=== PATIENT | female | born 1975 | race Caucasian/White ===

== ENCOUNTER 2020-09-09 07:44 | Emergency (ER) | payer SELFPAY ==
[2020-09-09 08:23] VITALS: BP 148/88; PULSE 86; RESP 16; TEMP 36.4; O2SAT 97; BMI 30.1
--- NOTE | 2020-09-09 08:29 | W.ED.BACK ---
HPI - Back Pain/Injury General: Chief Complaint: Back Pain/Injury Stated Complaint: BACK PAIN Time Seen by Provider: 09/09/20 08:21 History of Present Illness: HPI Narrative: Patient is a 45-year-old female who comes to the ED with lumbar back pain. Back pain started approximately 1 week ago. She says she was putting up [employer] decorations she thinks she strained her lower back. Her symptoms were improving over the last week but yesterday and today her back pain increased. She describes having some pain that radiates down left leg. Movement, especially standing up or sitting up causes increased pain. Patient says she can feel some pain radiating into her left leg when she is up ambulating. She has been taking ibuprofen and Tylenol help with pain. She has been applying cold pack on back to help with symptoms. Today patient developed some urine Associated symptoms: Reports urinary urgency (She keeps feeling like she frequently has to urinate, but only goes a littl); Deny abdominal pain, chills, dysuria, fatigue, fever(s), hematuria, nausea or vomiting Review of Systems Const: Denies: fever(s), chills or fatigue Eyes: Denies: change in vision or eye discomfort ENMT: Denies: throat pain, odynophagia, nasal discharge or nasal congestion Card: Denies: chest pain, palpitations, edema, swelling of feet/ankles, dyspnea on exertion or orthopnea Resp: Denies: dyspnea, productive cough or non-productive cough GI: Denies: abdominal pain, nausea, vomiting, diarrhea, constipation or hematochezia : Reports: urinary frequency and urinary urgency (She keeps feeling like she frequently has to urinate, but only goes a littl); Denies: flank pain, dysuria or hematuria Musc: Reports: back pain (Left lumbar); Denies: neck pain or extremity swelling Skin/Breast: Denies: rash or new lesions Neuro: Denies: headache(s), numbness in extremities or weakness in extremities PFS ED PFSH: Medical History Chronic post-traumatic stress disorder Generalized anxiety disorder Nicotine dependence, cigarettes, uncomplicated Social History Smoking and tobacco status: current every day smoker cigarettes Packs smoked per day: 1 Female Reproductive History: Date of last menstrual period: 08/26/20 Physical Exam Const: COMMON NORMALS: no acute distress, patient oriented x3, healthy appearing and alert GENERAL APPEARANCE: cooperative and comfortable HENMT: COMMON NORMALS: normocephalic HEAD & SCALP: normocephalic MOUTH: Normal oral and palatal mucosa present THROAT: posterior oropharynx normal and uvula midline Eye: COMMON NORMALS: Equal, round and reactive pupils present PUPIL: Yes Equal, round and reactive pupils present Neck/C-Spine: COMMON NORMALS: supple GENERAL: Yes normal visual inspection Resp: COMMON NORMALS: normal respiratory effort, No retractions, No use of accessory muscles and clear to auscultation bilaterally AUSCULTATION: clear to auscultation bilaterally Cardio: COMMON NORMALS: regular rate, regular rhythm, S1 normal heart sound present, S2 normal heart sound present, No gallops present (Cardio), No clicks present (Cardio), No murmurs present (Cardio) and Peripheral pulses 2+ throughout RATE: regular rate RHYTHM: regular rhythm HEART SOUNDS: S1 normal heart sound present and S2 normal heart sound present PERIPHERAL PULSES: Peripheral pulses 2+ throughout GI: COMMON NORMALS: Normal to inspection, nondistended, normoactive bowel sounds present, Soft to palpation, non-tender and no masses PALPATION: Yes Soft to palpation : COMMON NORMALS: Yes no CVA tenderness BLADDER/KIDNEY EXAM: Yes no CVA tenderness Back/Pelvis: COMMON NORMALS: no CVA tenderness LUMBAR SPINE/LOWER BACK: Yes pain with ROM, No lumbar spinal tenderness and Yes paraspinal muscle tenderness Lumbar paraspinal muscle tenderness: left left lumbar paraspinal muscle tenderness: L3 and L4 Extremity: COMMON NORMALS: normal to inspection Neuro: COMMON NORMALS: patient oriented x3 and moves all extremities SENSORIUM/ORIENTATION: Yes alert Skin: GENERAL SKIN EXAM: dry skin Course Vital Signs: Vital signs: Vital Signs Temperature 97.6 F 09/09/20 08:23 Pulse Rate 76 09/09/20 09:31 Respiratory Rate 16 09/09/20 09:31 Blood Pressure 112/68 09/09/20 09:31 Pulse Oximetry 97 09/09/20 09:31 MDM - Back Pain/Injury MDM Narrative: Medical decision making narrative: Patient is a 45-year-old female who comes to the ED with lower back pain radiates down into left leg. Patient has no cauda equina symptoms. Exam findings positive for pain with range of motion in the lumbar spine and paraspinal muscle tenderness on the left side. No lumbar spinal tenderness on palpation. Patient did states she was having some urine frequency, so UA was ordered and showed no signs of any UTI. Patient was given an IM dose of Norflex and Toradol here in the ED. Patient was diagnosed with lumbar radiculopathy and sent home with a prescription for Medrol Dosepak and methocarbamol. Follow-up with PCP in 7 to 10 days for reevaluation. Return to ED precautions given. Patient understood and agreed with plan. Lab Data: Labs: Lab Results 09/09/20 Range/Units 08:49 Urine Color Yellow (Yellow) Urine Appearance Hazy A (CLEAR) Urine pH 7 (5-7) Ur Specific Gravit y 1.010 (1.005-1.030) Urine Protein Neg (Negative) Urine Glucose (UA) Norm (Normal) Urine Ketones Negative (Negative) Urine Blood 2+ H (Negative) Urine Nitrate Negative (Negative) Urine Bilirubin Neg (Negative) Urine Urobilinogen 1 H (Negative) mg/dL Ur Leukocyte Elisabet ase Negative (Negative) Urine RBC Rare (0-2) /hpf Urine WBC Rare (0-5) /hpf Ur Squamous Epith Cells 0-4 H (0-5) /hpf Amorphous Sediment 1+ /hpf Urine Bacteria 1+ H (NONE) /hpf Discharge Plan Discharge Patient Disposition: Home Clinical Impression: Lumbar radiculopathy Condition: Stable Prescriptions: New Medrol (Osmar) 4 mg tablets,dose pack See Rx Instructions .ROUTE .COMPLEX Qty: 21 RF: 0 ibuprofen 800 mg tablet 800 mg PO Q8H PRN (Reason: pain) Qty: 30 RF: 0 methocarbamol 750 mg tablet 750 mg PO Q8H Qty: 21 RF: 0 No Action escitalopram oxalate [Lexapro] 20 mg tablet 20 mg PO .morning Qty: 90 RF: 2 clonazepam [Klonopin] 0.5 mg tablet 0.5 mg PO BID Qty: 60 RF: 3 ibuprofen 200 mg capsule 400 mg PO Q6H PRNRF: 0 Discharge Orders: Discharge ED (Routine); Ordered 09/09/20 Ordered By: Mehdi Andres Referrals: Polanco,Druery, MD [Primary Care Provider] - Discharge Diet: Regular Discharge Activity: Increase activity as tolerated Patient Instructions: Lumbar Radiculopathy (ED) Activity Restrictions/Additional Instructions: Follow-up with medical provider as directed in 7 to 10 days for reevaluation. take medications as prescribed. Methocarbamol as a muscle relaxer and can have some drowsiness side effects, so take at night before bed. You can use methocarbamol during the day but proceed with caution due to drowsiness side effects. Return to the ER or your medical provider if condition worsens. Please read and understand discharge instructions. If any questions, please ask. Coding Level of Care Code ED [employer] Specialist for [employer] Exam Comprehensive
[2020-09-09 08:47] VITALS: BP 112/72; PULSE 88; RESP 16; O2SAT 98
[2020-09-09] MEDS: orphenadrine 30 mg/mL Inj 2 mL 60 MG IM (08:55)
[2020-09-09] MEDS: ketorolac 60 mg/2 mL INJ IM (08:56)
[2020-09-09 09:15] LABS: Bilirubin Urine Neg (Negative); Blood Urine 2+ (Negative); Glucose Urine UA Norm (Normal); Ketones Urine Negative (Negative); Leukocyte Esterase Urine Negative (Negative); Nitrate Urine Negative (Negative); Protein Urine Neg (Negative); Urine Appearance Hazy (CLEAR); Urine Color Yellow (Yellow); Urobilinogen Urine 1 mg/dL (Negative); pH Urine 7 (5-7)
[2020-09-09 09:16] LABS: Bacteria Urine 1+ /hpf; RBC Urine RARE /hpf (0-2); Squamous Epithelial Cell Urine 0-4 /hpf (0-5); WBC Urine RARE /hpf (0-5)
[2020-09-09 09:17] LABS: Add Urine Culture? No; Amorphous Sediment Urine 1+ /hpf
[2020-09-09 09:31] VITALS: BP 112/68; PULSE 76; RESP 16; O2SAT 97
== END 2020-09-09 09:34 | disposition home or self-care (01) ==
PROVIDERS: Emergency Provider Physician Assistant; PCP Family Medicine
DX: M54.16 Radiculopathy, lumbar region (principal); F17.210 Nicotine dependence, cigarettes, uncomplicated
CPT/HCPCS: 12345; 81001; 96372; 99281; 99283; J1885; J2360

== ENCOUNTER → 2021-06-16 11:52 | Outpatient (BNVA) | payer OTHER, SELFPAY | PROVIDERS: PCP Family Medicine; Visit Provider Nurse Practitioner Family | DX: Z20.822 Contact with and (suspected) exposure to COVID-19 (principal) | CPT/HCPCS: 87635 ==